=== PATIENT | male | born 1940 | race Caucasian/White ===

== ENCOUNTER 2022-02-11 18:51 | Emergency (ER) | payer MEDICARE, BC ==
[2022-02-11 20:05] LABS: Basophils % (A) 0 %; Eosinophils % (A) 0 %; HCT 38.6 % (39.0-53.0); HGB 13.7 gm/dL (13.0-17.5); Lymphocytes % (A) 13 %; MCHC 35.5 g/dL (31.0-37.0); Mean Platelet Volume 9.8; Monocytes # (A) 0.9 k/uL (0-1.0); Monocytes % (A) 13 %; Neutrophils # (A) 5.3 k/uL (1.3-7.7); Neutrophils % (A) 72 %; Platelet Count 197 k/uL (150-450); RBC 4.16 m/uL (4.30-5.90); RDW 12.3 % (11.5-15.5); WBC 7.3 k/uL (3.8-10.6)
[2022-02-11 20:15] LABS: ALT 22 U/L (4-49); AST 41 U/L (17-59); African American GFR (CKD) >90 (>60 ml/min/1.73 sqM); Albumin 4.1 g/dL (3.5-5.0); Alkaline Phosphatase 88 U/L (38-126); Anion Gap 11 mmol/L; Blood Urea Nitrogen 20 mg/dL (9-20); Carbon Dioxide 23 mmol/L (22-30); Chloride 103 mmol/L (98-107); Glucose 109 mg/dL (74-99); Magnesium 1.8 mg/dL (1.6-2.3); Non-African American GFR(CKD) 89 (>60 ml/min/1.73 sqM); Potassium 3.6 mmol/L (3.5-5.1); Sodium 137 mmol/L (137-145); Total Bilirubin 0.6 mg/dL (0.2-1.3); Total Protein 6.3 g/dL (6.3-8.2)
--- NOTE | 2022-02-11 20:18 | XR ---
EXAMINATION TYPE: XR chest 2V DATE OF EXAM: 02/11/2022 COMPARISON: NONE HISTORY: Weakness TECHNIQUE: 2 views FINDINGS: Heart is normal. Lungs are clear of infiltrate. No heart failure. There are no hilar masses . There is spurring in the thoracic spine. Bony thorax is intact. IMPRESSION: No active cardiopulmonary disease. Normal heart.
--- NOTE | 2022-02-11 20:19 | XR ---
EXAMINATION TYPE: XR Hip RT and AP Pelvis DATE OF EXAM: 02/11/2022 COMPARISON: NONE HISTORY: Pain TECHNIQUE: 3 views FINDINGS: The pelvic ring is intact. Sacroiliac joints are intact. There is acetabular bilateral spur formation. The proximal right femur is intact. No hip fracture. 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 No fracture seen.
[2022-02-11] MEDS ORDERED: Acetaminophen-Codeine 300-30mg TAB PO STA (20:28)
--- NOTE | 2022-02-11 20:42 | CT ---
EXAMINATION TYPE: CT brain yaw strauss DATE OF EXAM: 02/11/2022 COMPARISON: None HISTORY: pain after fall CT DLP: 1399.8 mGycm Automated exposure control for dose reduction was used. Images obtained of the brain without contrast. There is hypodensity in the periventricular white matter. There is no mass effect or midline shift. N o sign of intracranial hemorrhage. There is cerebral cortical atrophy. The cervical vertebra have fairly normal alignment. There is a mild retrolisthesis at C5-6. There is anterior moderate spurring at C5-6 and C6-7. There is hypertrophic mild cervical facet arthropathy. S kull base is intact. IMPRESSION: Cerebral atrophy and chronic small vessel ischemia. No acute intracranial abnormality. Spondylotic changes in the cervical spine and a minimal C5-6 retrolisthesis. No fracture.
[2022-02-11 20:44] LABS: Partial Thromboplastin Time 27.4 sec (22.0-30.0); Prothrombin Time 11.1 sec (9.0-12.0)
--- NOTE | 2022-02-11 21:38 | ED ---
General Adult HPI - General Chief complaint: Weakness Stated complaint: dementia, frequent falls Time Seen by Provider: 02/11/22 19:00 Source: patient Mode of arrival: ambulatory Limitations: no limitations - History of Present Illness Initial comments: 81 year old male with PMH dementia presents after 2 falls today. reports history. States that the patient had an unwitnessed fall. She found him in the living room on the floor just in front of his chair. Patient does not remember falling out of it. Reports that he hit his head but did not lose consciousness. Denies headache, neck pain, visual changes. Due to right hip pain from the fall, the patient sustained a second fall later on in the day after his hip gave out. Son was able to help him up and then called an ambulance. Patient able to answer all questions. Denies current hip pain. - Related Data Allergies Allergy/AdvReac Type Severity Reaction Status Date / Time Penicillins Allergy Unknown Verified 02/11/22 19:00 Review of Systems ROS Statement: Those systems with pertinent positive or pertinent negative responses have been documented in the HPI. ROS Other: All systems not noted in ROS Statement are negative. Past Medical History Past Medical History: Cancer, CVA/TIA, Dementia, GERD/Reflux, Hyperlipidemia, Thyroid Disorder History of Any Multi-Drug Resistant Organisms: None Reported Additional Past Surgical History / Comment(s): colostomy Past Psychological History: No Psychological Hx Reported Smoking Status: Never smoker Past Alcohol Use History: None Reported Past Drug Use History: None Reported General Exam Limitations: no limitations General appearance: alert, in no apparent distress Head exam: Present: atraumatic, normocephalic, normal inspection Eye exam: Present: normal appearance, PERRL, EOMI. Absent: scleral icterus, conjunctival injection, periorbital swelling ENT exam: Present: normal exam, mucous membranes moist Neck exam: Present: normal inspection. Absent: tenderness, meningismus, lymphadenopathy Respiratory exam: Present: normal lung sounds bilaterally. Absent: respiratory distress, wheezes, rales, rhonchi, stridor Cardiovascular Exam: Present: regular rate, normal rhythm, normal heart sounds. Absent: systolic murmur, diastolic murmur, rubs, gallop, clicks GI/Abdominal exam: Present: soft, normal bowel sounds. Absent: distended, tenderness, guarding, rebound, rigid Extremities exam: Present: normal inspection, full ROM, normal capillary refill. Absent: tenderness, pedal edema, joint swelling, calf tenderness Back exam: Present: normal inspection Neurological exam: Present: alert, oriented X3, CN II-XII intact Psychiatric exam: Present: normal affect, normal mood Skin exam: Present: warm, dry, intact, normal color. Absent: rash Course Vital Signs 02/11/22 02/11/22 02/11/22 18:54 19:30 22:22 Temperature 98.2 F 98.1 F 99.2 F Pulse Rate 68 63 70 Respiratory 18 16 12 Rate Blood Pressure 146/61 132/57 142/64 O2 Sat by Pulse 94 L Oximetry EKG Findings - EKG Comments: EKG Findings:: EKG demonstrates sinus rhythm with rate of 65. NE interval 175. QRS 92. QTC of 318. No acute ST segment elevations or depressions Medical Decision Making - Medical Decision Making Upon arrival, patient placed into room 3. History and physical exam performed. Pt sent for CT brain/c-spine. Chest and pelvic xray performed. No acute injuries. Patient eager to go home and is agreeable. Patient needs to follow up with PCP in 2-4 days and return for any new or worsening symptoms. - Lab Data Result diagrams: 02/11/22 19:59 02/11/22 19:59 Lab Results 02/11/22 02/11/22 02/11/22 Range/Units 19:59 19:59 19:59 WBC 7.3 (3.8-10.6) k/uL RBC 4.16 L (4.30-5.90) m/uL Hgb 13.7 (13.0-17.5) gm/dL Hct 38.6 L (39.0-53.0) % MCV 93.0 (80.0-100.0) fL MCH 33.0 (25.0-35.0) pg MCHC 35.5 (31.0-37.0) g/dL RDW 12.3 (11.5-15.5) % Plt Count 197 (150-450) k/uL MPV 9.8 Neutrophils % 72 % Lymphocytes % 13 % Monocytes % 13 % Eosinophils % 0 % Basophils % 0 % Neutrophils # 5.3 (1.3-7.7) k/uL Lymphocytes # 1.0 (1.0-4.8) k/uL Monocytes # 0.9 (0-1.0) k/uL Eosinophils # 0.0 (0-0.7) k/uL Basophils # 0.0 (0-0.2) k/uL PT 11.1 (9.0-12.0) sec INR 1.0 (<1.2) APTT 27.4 (22.0-30.0) sec Sodium 137 (137-145) mmol/L Potassium 3.6 (3.5-5.1) mmol/L Chloride 103 (98-107) mmol/L Carbon Dioxide 23 (22-30) mmol/L Anion Gap 11 mmol/L BUN 20 (9-20) mg/dL Creatinine 0.70 (0.66-1.25) mg/dL Est GFR (CKD-EPI)AfAm >90 (>60 ml/min/1.73 sqM) Est GFR (CKD-EPI)NonAf 89 (>60 ml/min/1.73 sqM) Glucose 109 H (74-99) mg/dL Plasma Lactic Acid Elroy (0.7-2.0) mmol/L Calcium 9.0 (8.4-10.2) mg/dL Magnesium 1.8 (1.6-2.3) mg/dL Total Bilirubin 0.6 (0.2-1.3) mg/dL AST 41 (17-59) U/L ALT 22 (4-49) U/L Alkaline Phosphatase 88 (38-126) U/L Troponin I (0.000-0.034) ng/mL Total Protein 6.3 (6.3-8.2) g/dL Albumin 4.1 (3.5-5.0) g/dL TSH 0.025 L (0.465-4.680) mIU/L Free T4 1.70 (0.78-2.19) ng/dL 02/11/22 02/11/22 Range/Units 19:59 19:59 WBC (3.8-10.6) k/uL RBC (4.30-5.90) m/uL Hgb (13.0-17.5) gm/dL Hct (39.0-53.0) % MCV (80.0-100.0) fL MCH (25.0-35.0) pg MCHC (31.0-37.0) g/dL RDW (11.5-15.5) % Plt Count (150-450) k/uL MPV Neutrophils % % Lymphocytes % % Monocytes % % Eosinophils % % Basophils % % Neutrophils # (1.3-7.7) k/uL Lymphocytes # (1.0-4.8) k/uL Monocytes # (0-1.0) k/uL Eosinophils # (0-0.7) k/uL Basophils # (0-0.2) k/uL PT (9.0-12.0) sec INR (<1.2) APTT (22.0-30.0) sec Sodium (137-145) mmol/L Potassium (3.5-5.1) mmol/L Chloride (98-107) mmol/L Carbon Dioxide (22-30) mmol/L Anion Gap mmol/L BUN (9-20) mg/dL Creatinine (0.66-1.25) mg/dL Est GFR (CKD-EPI)AfAm (>60 ml/min/1.73 sqM) Est GFR (CKD-EPI)NonAf (>60 ml/min/1.73 sqM) Glucose (74-99) mg/dL Plasma Lactic Acid Elroy 0.7 (0.7-2.0) mmol/L Calcium (8.4-10.2) mg/dL Magnesium (1.6-2.3) mg/dL Total Bilirubin (0.2-1.3) mg/dL AST (17-59) U/L ALT (4-49) U/L Alkaline Phosphatase (38-126) U/L Troponin I <0.012 (0.000-0.034) ng/mL Total Protein (6.3-8.2) g/dL Albumin (3.5-5.0) g/dL TSH (0.465-4.680) mIU/L Free T4 (0.78-2.19) ng/dL Disposition Clinical Impression: Fall, Right hip pain Disposition: HOME SELF-CARE Condition: Stable Instructions (If sedation given, give patient instructions): Fall Prevention for Older Adults (ED) Additional Instructions: Please ambulate with the walker. Follow-up with your primary care doctor in 2-4 days. Return for any new or worsening symptoms Is patient prescribed a controlled substance at d/c from ED?: No Referrals: Marcos Phan MD [Primary Care Provider] - 1-2 days Time of Disposition: 21:44
[2022-02-11 22:52] VITALS: BP 142/64; PULSE 70; RESP 12; TEMP 99.2
== END 2022-02-11 22:22 | disposition home or self-care (01) ==
LOC: EC 18:51
DX: M25.551 Pain in right hip (principal); I63.9 Cerebral infarction, unspecified; K21.9 Gastro-esophageal reflux disease without esophagitis; E78.5 Hyperlipidemia, unspecified; E03.9 Hypothyroidism, unspecified; G45.9 Transient cerebral ischemic attack, unspecified; Z88.0 Allergy status to penicillin; W19.XXXA Unspecified fall, initial encounter
CPT/HCPCS: 36415; 70450; 71046; 72125; 73502; 80053; 83605; 83735; 84439; 84443; 84484; 85025; 85610; 85730; 93005; 99285

== ENCOUNTER 2022-12-13 03:05 | Emergency (ER) | payer MEDICARE, BC ==
[2022-12-13 03:14] VITALS: BP 147/60; PULSE 56; RESP 18; TEMP 98.6
--- NOTE | 2022-12-13 03:33 | ED ---
General Adult HPI - General Chief complaint: Fall Stated complaint: Fall, Hip Pain, Time Seen by Provider: 12/13/22 03:19 Source: patient, RN/MD Mode of arrival: wheelchair - History of Present Illness Initial comments: Dictation was produced using [employer] dictation software. please excuse any grammatical, word or spelling errors. Chief Complaint: 81-year-old male past medical history dementia presents to the ER after fall History of Present Illness: Is an 81-year-old male he has allegedly history of dementia. Patient provides history of present illness. he was brought to the ER by his brother who is not at the bedside currently. States that he was sleeping on the couch when he rolled over his left hip. Did strike his head. Patient has any complaints. Patient denies any anticoagulation use. Patient was upstairs because his is admitted. According to nurse take care of patients he was sleeping on the couch when he rolled over and fell. The ROS documented in this emergency department record has been reviewed and confirmed by me. Those systems with pertinent positive or negative responses have been documented in the HPI. All other systems are other negative and/or noncontributory. - Related Data Allergies Allergy/AdvReac Type Severity Reaction Status Date / Time Penicillins Allergy Unknown Verified 12/13/22 03:14 Review of Systems ROS Statement: Those systems with pertinent positive or pertinent negative responses have been documented in the HPI. ROS Other: All systems not noted in ROS Statement are negative. Past Medical History Past Medical History: Cancer, CVA/TIA, Dementia, GERD/Reflux, Hyperlipidemia, Thyroid Disorder History of Any Multi-Drug Resistant Organisms: None Reported Additional Past Surgical History / Comment(s): colostomy Past Psychological History: No Psychological Hx Reported Smoking Status: Never smoker Past Alcohol Use History: None Reported Past Drug Use History: None Reported General Exam - General Exam Comments Initial Comments: PHYSICAL EXAM: General Impression: Alert and oriented x3, not in acute distress HEENT: Normocephalic atraumatic, extra-ocular movements intact, pupils equal and reactive to light bilaterally, mucous membranes moist. Cardiovascular: Heart regular rate and rhythm Chest: Able to complete full sentences, no retractions, no tachypnea Abdomen: abdomen soft, non-tender, non-distended, no organomegaly Musculoskeletal: Pulses present and equal in all extremities, no peripheral edema Motor: no focal deficits noted Neurological: CN II-XII grossly intact, no focal motor or sensory deficits noted Skin: Intact with no visualized rashes Psych: Normal affect and mood Course Vital Signs 12/13/22 03:11 Temperature 98.6 F Pulse Rate 56 L Respiratory 18 Rate Blood Pressure 147/60 O2 Sat by Pulse 98 Oximetry Medical Decision Making - Medical Decision Making Was pt. sent in by a medical professional or institution (GALILEO Riddle, OUTSIDE SALES INSPECTOR, urgent care, hospital, or alf...) When possible be specific @ -No Did you speak to anyone other than the patient for history (EMS, parent, family, police, friend...)? What history was obtained from this source @ -No Did you review nursing and triage notes (agree or disagree)? Why? @ -I reviewed and agree with nursing and triage notes Were old charts reviewed (outside hosp., previous admission, EMS record, old EKG, old radiological studies, urgent care reports/EKG's, alf records)? Report findings @ -No old charts were reviewed Differential Diagnosis (chest pain, altered mental status, abdominal pain women, abdominal pain men, vaginal bleeding, musculoskeletal, weakness, fever, dyspnea, syncope, headache, dizziness, GI bleed, back pain, seizure, CVA, palpatations, mental health)? @ -not applicable EKG interpreted by me (3pts min.). @ -None done X-rays interpreted by me (1pt min.). @ -None done CT interpreted by me (1pt min.). @ -Computed tomography scan of the head and C-spine shows no acute processes U/S interpreted by me (1pt. min.). @ -None done What testing was considered but not performed or refused? (CT, X-rays, U/S, labs)? Why? @ -None What meds were considered but not given or refused? Why? @ -None Did you discuss the management of the patient with other professionals (professionals i.e. GALILEO Riddle, OUTSIDE SALES INSPECTOR, lab, RT, psych nurse, social studies teacher, general labor, teacher, chief security and safety officer, special education case manager)? Give summary @ -No Was smoking cessation discussed for >3mins.? @ -No Was critical care preformed (if so, how long)? @ -No Were there social determinants of health that impacted care today? How? (Homelessness, low income, unemployed, alcoholism, drug addiction, transportation, low edu. Level, literacy, decrease access to med. care, longterm, rehab)? @ -No Was there de-escalation of care discussed even if they declined (Discuss DNR or withdrawal of care, Hospice)? DNR status @ -No What co-morbidities impacted this encounter? (DM, HTN, Smoking, COPD, CAD, Cancer, CVA, ARF, Chemo, Hep., AIDS, mental health diagnosis, sleep apnea, morbid obesity)? @ -None Was patient admitted / discharged? Hospital course, mention meds given and route, prescriptions, significant lab abnormalities, going to OR and other pertinent info. @ -81-year-old male presents emergency department for close head injury. Vital signs stable. Physical examination benign. Imaging studies negative. Patient discharged. Undiagnosed new problem with uncertain prognosis? @ -No Drug Therapy requiring intensive monitoring for toxicity (Heparin, Nitro, Insulin, Cardizem)? @ -No Were any procedures done? @ -No Diagnosis/symptom? Acute, or Chronic, or Acute on Chronic? Uncomplicated (wit hout systemic symptoms) or Complicated (systemic symptoms)? @ -Closed head injury Side effects of treatment? @ -No Exacerbation, Progression, or Severe Exacerbation? @ -No Poses a threat to life or bodily function? How? (Chest pain, [place], [place], pneumonia, PE, COPD, DKA, ARF, appy, cholecystitis, CVA, Diverticulitis, Homicidal, Suicidal, threat to staff... and all critical care pts) @ -No Disposition Clinical Impression: Fall Disposition: HOME SELF-CARE Condition: Good Instructions (If sedation given, give patient instructions): Fall Prevention for Older Adults (ED) Is patient prescribed a controlled substance at d/c from ED?: No Referrals: None,Stated [Primary Care Provider] - 1-2 days Time of Disposition: 06:46
--- NOTE | 2022-12-13 06:43 | CT ---
EXAM: CT Head Without Intravenous Contrast CLINICAL HISTORY: ITS.REASON CT Reason: fall TECHNIQUE: Axial computed tomography images of the head/brain without intravenous contrast. CTDI is 45.2 mGy and DLP is 1049 mGy-cm. This CT exam was performed using one or more of the following dose reduction techniques: automated exposure control, adjustment of the mA and/or kV according to patient size, and/or use of iterative reconstruction technique. COMPARISON: No relevant prior studies available. FINDINGS: Brain: Unremarkable. No hemorrhage. Advanced nonspecific white matter changes. No edema. Ventricles: Mild ventricular megaly. Bones/joints: Unremarkable. No acute fracture. Soft tissues: Bilateral lens replacements. Sinuses: Unremarkable as visualized. No acute sinusitis. Mastoid air cells: Unremarkable as visualized. No mastoid effusion. IMPRESSION: No evidence of acute intracranial pathology. EXAM: CT Cervical Spine Without Intravenous Contrast CLINICAL HISTORY: ITS.REASON CT Reason: fall TECHNIQUE: Axial computed tomography images of the cervical spine without intravenous contrast. CTDI is 12.2 mGy and DLP is 308.2 mGy-cm. This CT exam was performed using one or more of the following dose reduction techniques: automated exposure control, adjustment of the mA and/or kV according to patient size, and/or use of iterative reconstruction technique. COMPARISON: No relevant prior studies available. FINDINGS: Vertebrae: Unremarkable. No acute fracture. Discs/spinal canal/neural foramina: Moderate to advanced disc degeneration at C3-4, C5-6, C6-7 and C7-T1. No acute findings. No spinal canal stenosis. Soft tissues: Moderate to heavily calcified atherosclerotic disease of the carotid bifurcations. IMPRESSION: No evidence of acute cervical spine pathology.
== END 2022-12-13 06:54 | disposition home or self-care (01) ==
LOC: EC 03:05
DX: M25.552 Pain in left hip (principal); Z88.0 Allergy status to penicillin; X50.0XXA Overexertion from strenuous movement or load, initial encounter
CPT/HCPCS: 70450; 72125; 99283

== ENCOUNTER 2023-01-06 19:00 | Inpatient (IN) | payer MEDICARE, BC ==
[2023-01-06] MEDS ORDERED: SODIUM CHLORIDE 0.9% 1,000 ML IV ONE (19:35)
[2023-01-06] MEDS ORDERED: LORazepam 2 MG/ML INJ IV STA (19:35)
--- NOTE | 2023-01-06 19:35 | ED ---
Altered Mental Status HPI - General Source: EMS, RN notes reviewed, old records reviewed Mode of arrival: EMS Limitations: no limitations, altered mental status - History of Present Illness MD Complaint: altered mental status, weakness -: hour(s) Severity: moderate Consistency of Symptoms: waxing and waning Context: alcohol abuse, drug abuse Associated Symptoms: denies other symptoms Treatments Prior to Arrival: IV fluid <Karlos Weaver - Last Filed: 01/06/23 21:56> <Silvano Cleveland - Last Filed: 01/07/23 00:00> - General Chief Complaint: Psychiatric Symptoms Stated Complaint: Altered Mental Status Time Seen by Provider: 01/06/23 19:06 - History of Present Illness Initial Comments: This is a 82-year-old male to the emergency department for evaluation. Patient presents today for evaluation regards to altered mental status not acting appropriately fighting with family. Patient was found with a gun in the ba sement, patient's son his here in the ER who brings patient to the emergency department after EMS with patient being affected family and himself. Patient is unable to give accurate statements regarding why he is in the hospital or why he was holding a gun today, son is very concerned for safety and safety of the family (Karlos Weaver) - Related Data Allergies Allergy/AdvReac Type Severity Reaction Status Date / Time Penicillins Allergy Unknown Verified 01/06/23 22:09 Review of Systems ROS Other: All systems not noted in ROS Statement are negative. <Karlos Weaver - Last Filed: 01/06/23 21:56> ROS Other: All systems not noted in ROS Statement are negative. <Silvano Cleveland - Last Filed: 01/07/23 00:00> ROS Statement: Those systems with pertinent positive or pertinent negative responses have been documented in the HPI. Past Medical History Past Medical History: Cancer, CVA/TIA, Dementia, GERD/Reflux, Hyperlipidemia, Thyroid Disorder History of Any Multi-Drug Resistant Organisms: None Reported Additional Past Surgical History / Comment(s): colostomy Past Psychological History: No Psychological Hx Reported Smoking Status: Never smoker Past Alcohol Use History: None Reported Past Drug Use History: None Reported <Karlos Weaver - Last Filed: 01/06/23 21:56> General Exam Limitations: no limitations, altered mental status General appearance: alert, in no apparent distress Head exam: Present: atraumatic, normocephalic, normal inspection Eye exam: Present: normal appearance, PERRL, EOMI. Absent: scleral icterus, conjunctival injection, periorbital swelling ENT exam: Present: normal exam, mucous membranes moist Neck exam: Present: normal inspection. Absent: tenderness, meningismus, lymph adenopathy Respiratory exam: Present: normal lung sounds bilaterally. Absent: respiratory distress, wheezes, rales, rhonchi, stridor Cardiovascular Exam: Present: regular rate, normal rhythm, normal heart sounds. Absent: systolic murmur, diastolic murmur, rubs, gallop, clicks GI/Abdominal exam: Present: soft, normal bowel sounds. Absent: distended, tenderness, guarding, rebound, rigid Extremities exam: Present: normal inspection, full ROM, normal capillary refill. Absent: tenderness, pedal edema, joint swelling, calf tenderness Back exam: Present: normal inspection Neurological exam: Present: alert, oriented X3, CN II-XII intact Psychiatric exam: Present: normal affect, normal mood Skin exam: Present: warm, dry, intact, normal color. Absent: rash <Karlos Weaver - Last Filed: 01/06/23 21:56> Course <Karlos Weaver - Last Filed: 01/06/23 21:56> Vital Signs 01/06/23 19:03 Temperature 98.4 F Pulse Rate 93 Respiratory 18 Rate Blood Pressure 170/75 O2 Sat by Pulse 97 Oximetry - Reevaluation(s) Reevaluation #1: 01/06/23 20:11 Medical records reviewed 01/06/23 21:56 Medically clear for psychiatric evaluation (Karlos Weaver) Reevaluation #4: 01/06/23 20:11 Was pt. sent in by a medical professional or institution (, PA, [employer], urgent care, hospital, or halfway...) When possible be specific @ -no Did you speak to anyone other than the patient for history (EMS, parent, family, police, friend...)? What history was obtained from this source @ -no Did you review nursing and triage notes (agree or disagree)? Why? @ -agree Are old charts reviewed (outside hosp., previous admission, EMS record, old EKG, old radiological studies, urgent care reports/EKG's, halfway records)? Report findings @ -yes Differential Diagnosis (chest pain, altered mental status, abdominal pain women, abdominal pain men, vaginal bleeding, weakness, fever, dyspnea, syncope, headache, dizziness, GI bleed, back pain, seizure, CVA, palpatations, mental health, musculoskeletal)? @ -prior EKG interpreted by me (3pts min.). @ -yes X-rays interpreted by me (1pt min.). @ -yes CT interpreted by me (1pt min.). @ -no U/S interpreted by me (1pt. min.). @ -no What testing was considered but not performed or refused? (CT, X-rays, U/S, labs)? Why? @ -none What meds were considered but not given or refused? Why? @ -none Did you discuss the management of the patient with other professionals (professionals i.e. , PA, [employer], lab, RT, psych nurse, family welfare social work professor, gym manager, t eacher, aoc director intelligence officer, case coordinator)? Give summary @ -no Was smoking cessation discussed for >3mins.? @ -no Was critical care preformed (if so, how long)? @ -no Were there social determinants of health that impacted care today? How? (Homelessness, low income, unemployed, alcoholism, drug addiction, transportation, low edu. Level, literacy, decrease access to med. care, nursing home, rehab)? @ -none Was there de-escalation of care discussed even if they declined (Discuss DNR or withdrawal of care, Hospice)? DNR status @ -no What co-morbidities impacted this encounter? (DM, HTN, Smoking, COPD, CAD, Cancer, CVA, ARF, Chemo, Hep., AIDS, mental health diagnosis, sleep apnea, morbid obesity)? @ -none Was patient admitted / discharged? Hospital course, mention meds given and route, prescriptions, significant lab abnormalities, going to OR and other pertinent info. @ - Undiagnosed new problem with uncertain prognosis? @ -no Drug Therapy requiring intensive monitoring for toxicity (Heparin, Nitro, Insulin, Cardizem)? @ -no Were any procedures done? @ -no Diagnosis/symptom? @ - Acute, or Chronic, or Acute on Chronic? @ -Acute Uncomplicated (without systemic symptoms) or Complicated (systemic symptoms)? @ -Complicated Side effects of treatment? @ -no Exacerbation, Progression, or Severe Exacerbation? @ -exacerbation Poses a threat to life or bodily function? How? (Chest pain, USA, NM, pneumonia, PE, COPD, DKA, ARF, appy, cholecystitis, CVA, Diverticulitis, Homicidal, Suicidal, threat to staff... and all critical care pts) @ -yes (Karlos Weaver) Reevaluation #5: 01/06/23 20:11 Differential Altered Mental Status: Hypoglycemia, DKA, hypercapnia, ETOH, overdose, CO poisoning, trauma, myxedema coma, HTN encephalopathy, infection, encephalitis, psychosis, intercranial hemorrhage, hepatic encephalopathy, meningitis, CVA, this is not meant to be an all-inclusive list (Karlos Weaver) Medical Decision Making - Lab Data Result diagrams: 01/06/23 20:00 01/06/23 20:00 - EKG Data -: EKG Interpreted by Me (EKG is sinus rate 75 CA 197 QRS 84 QTc 390) <Karlos Weaver - Last Filed: 01/06/23 21:56> - Lab Data Result diagrams: 01/06/23 20:00 01/06/23 20:00 <Silvano Cleveland - Last Filed: 01/07/23 00:00> - Lab Data Lab Results 01/06/23 01/06/23 01/06/23 Range/Units 19:59 20:00 20:00 WBC 8.0 (3.8-10.6) k/uL RBC 4.73 (4.30-5.90) m/uL Hgb 15.5 (13.0-17.5) gm/dL Hct 45.4 (39.0-53.0) % MCV 95.9 (80.0-100.0) fL MCH 32.8 (25.0-35.0) pg MCHC 34.2 (31.0-37.0) g/dL RDW 13.2 (11.5-15.5) % Plt Count 259 (150-450) k/uL MPV 9.4 Neutrophils % 69 % Lymphocytes % 23 % Monocytes % 5 % Eosinophils % 2 % Basophils % 0 % Neutrophils # 5.5 (1.3-7.7) k/uL Lymphocytes # 1.8 (1.0-4.8) k/uL Monocytes # 0.4 (0-1.0) k/uL Eosinophils # 0.2 (0-0.7) k/uL Basophils # 0.0 (0-0.2) k/uL PT 10.5 (9.0-12.0) sec INR 1.0 (<1.2) APTT 25.7 (22.0-30.0) sec Sodium (137-145) mmol/L Potassium (3.5-5.1) mmol/L Chloride (98-107) mmol/L Carbon Dioxide (22-30) mmol/L Anion Gap mmol/L BUN (9-20) mg/dL Creatinine (0.66-1.25) mg/dL Est GFR (CKD-EPI)AfAm (>60 ml/min/1.73 sqM) Est GFR (CKD-EPI)NonAf (>60 ml/min/1.73 sqM) Glucose (74-99) mg/dL POC Glucose (mg/dL) 109 (70-110) mg/dL POC Glu Inspector Bullet Slugs ID Alonso Boyd Calcium (8.4-10.2) mg/dL Total Bilirubin (0.2-1.3) mg/dL AST (17-59) U/L ALT (4-49) U/L Alkaline Phosphatase (38-126) U/L Ammonia (<30) umol/L Troponin I (0.000-0.034) ng/mL Total Protein (6.3-8.2) g/dL Albumin (3.5-5.0) g/dL Serum Alcohol mg/dL 01/06/23 01/06/23 01/06/23 Range/Units 20:00 20:00 20:00 WBC (3.8-10.6) k/uL RBC (4.30-5.90) m/uL Hgb (13.0-17.5) gm/dL Hct (39.0-53.0) % MCV (80.0-100.0) fL MCH (25.0-35.0) pg MCHC (31.0-37.0) g/dL RDW (11.5-15.5) % Plt Count (150-450) k/uL MPV Neutrophils % % Lymphocytes % % Monocytes % % Eosinophils % % Basophils % % Neutrophils # (1.3-7.7) k/uL Lymphocytes # (1.0-4.8) k/uL Monocytes # (0-1.0) k/uL Eosinophils # (0-0.7) k/uL Basophils # (0-0.2) k/uL PT (9.0-12.0) sec INR (<1.2) APTT (22.0-30.0) sec Sodium 139 (137-145) mmol/L Potassium 4.1 (3.5-5.1) mmol/L Chloride 105 (98-107) mmol/L Carbon Dioxide 27 (22-30) mmol/L Anion Gap 7 mmol/L BUN 15 (9-20) mg/dL Creatinine 0.67 (0.66-1.25) mg/dL Est GFR (CKD-EPI)AfAm >90 (>60 ml/min/1.73 sqM) Est GFR (CKD-EPI)NonAf >90 (>60 ml/min/1.73 sqM) Glucose 112 H (74-99) mg/dL POC Glucose (mg/dL) (70-110) mg/dL POC Glu Inspector [employer] Slugs ID Calcium 9.5 (8.4-10.2) mg/dL Total Bilirubin 1.0 (0.2-1.3) mg/dL AST 34 (17-59) U/L ALT 18 (4-49) U/L Alkaline Phosphatase 94 (38-126) U/L Ammonia <9 (<30) umol/L Troponin I <0.012 (0.000-0.034) ng/mL Total Protein 7.4 (6.3-8.2) g/dL Albumin 4.2 (3.5-5.0) g/dL Serum Alcohol <10 mg/dL Disposition <Karlos Weaver - Last Filed: 01/06/23 21:56> Is patient prescribed a controlled substance at d/c from ED?: No Time of Disposition: 23:30 Decision to Admit Reason: Admit from EC Decision Date: 01/06/23 Decision Time: 23:30 <Silvano Cleveland - Last Filed: 01/07/23 00:00> Clinical Impression: Dementia Disposition: ADMITTED IP TO THIS HOSP Condition: Stable Referrals: Marcos Phan MD [Primary Care Provider] - 1-2 days
[2023-01-06 20:01] LABS: Glucose,Whole Blood 109 mg/dL (70-110)
[2023-01-06 20:09] LABS: Basophils % (A) 0 %; Eosinophils # (A) 0.2 k/uL (0-0.7); Eosinophils % (A) 2 %; HCT 45.4 % (39.0-53.0); HGB 15.5 gm/dL (13.0-17.5); Lymphocytes # (A) 1.8 k/uL (1.0-4.8); Lymphocytes % (A) 23 %; MCH 32.8 pg (25.0-35.0); MCHC 34.2 g/dL (31.0-37.0); MCV 95.9 fL (80.0-100.0); Mean Platelet Volume 9.4; Monocytes # (A) 0.4 k/uL (0-1.0); Monocytes % (A) 5 %; Neutrophils # (A) 5.5 k/uL (1.3-7.7); Neutrophils % (A) 69 %; Platelet Count 259 k/uL (150-450); RBC 4.73 m/uL (4.30-5.90); RDW 13.2 % (11.5-15.5)
[2023-01-06 20:19] LABS: ALT 18 U/L (4-49); AST 34 U/L (17-59); African American GFR (CKD) >90 (>60 ml/min/1.73 sqM); Albumin 4.2 g/dL (3.5-5.0); Alcohol <10 mg/dL; Alkaline Phosphatase 94 U/L (38-126); Anion Gap 7 mmol/L; Blood Urea Nitrogen 15 mg/dL (9-20); Calcium 9.5 mg/dL (8.4-10.2); Carbon Dioxide 27 mmol/L (22-30); Chloride 105 mmol/L (98-107); Glucose 112 mg/dL (74-99); Non-African American GFR(CKD) >90 (>60 ml/min/1.73 sqM); Potassium 4.1 mmol/L (3.5-5.1); Sodium 139 mmol/L (137-145); Total Protein 7.4 g/dL (6.3-8.2)
[2023-01-06 20:22] LABS: Partial Thromboplastin Time 25.7 sec (22.0-30.0); Prothrombin Time 10.5 sec (9.0-12.0)
[2023-01-06] MEDS ORDERED: NALOXONE 0.4 MG/ML 1 ML VIAL IV PRN (23:58)
[2023-01-07 01:59] LABS: Amphetamine Screen,Urine Not Detected (NotDetected); Barbiturate Screen,Urine Not Detected (NotDetected); Benzodiazepines Screen,Urine Detected (NotDetected); Cocaine Screen,Urine Not Detected (NotDetected); Methadone Screen, Urine Not Detected (NotDetected); Opiate Screen,Urine Not Detected (NotDetected); Oxycodone Screen, Urine Not Detected (NotDetected); Phencyclidine Screen,Urine Not Detected (NotDetected); Tricyclic Antidepressant,Urine Not Detected (NotDetected); Urn Cannabinoid Scrn Not Detected (NotDetected)
[2023-01-07] MEDS ORDERED: LEVOTHYROXINE 88 MCG TAB PO SCH (11:45)
[2023-01-07 13:44] LABS: T4, Free (Free Thyroxine) 0.52 ng/dL (0.78-2.19)
[2023-01-07] MEDS: HEPARIN SODIUM,PORCINE 5,000 UNIT/ML 1 ML VIAL SQ SCH (16:49)
[2023-01-07] MEDS: LEVOTHYROXINE 75 MCG TAB PO SCH (16:49)
[2023-01-07] MEDS: DONEPEZIL 10 MG TAB PO SCH (21:31)
[2023-01-07] MEDS: DIVALPROEX ER 250 MG TAB.ER.24H PO SCH (21:31)
[2023-01-08] MEDS: HEPARIN SODIUM,PORCINE 5,000 UNIT/ML 1 ML VIAL SQ SCH ×4 (00:09→23:20)
--- NOTE | 2023-01-08 00:39 | P.HPIM ---
History of Present Illness H&P Date: 01/07/23 Chief Complaint: Behavioral changes Patient is a 82-year-old male with a past medical history of CVA/TIA, dementia, hypothyroidism, hyperlipidemia, GERD, history of cancer and colostomy was brought to the hospital for evaluation of altered mental status and patient is not acting appropriately and has been fighting with family. Patient was found with a gun in the basement, patient was brought to the hospital by his son. Patient's son was very concerned about safety of the patient and family. Otherwise patient does not have any symptoms of chest pain or shortness of br eath. No nausea vomiting abdominal pain or diarrhea. Patient does have colostomy bag and has not been taking care of it very well. On admission EKG showed sinus rhythm. This likely is not available. Laboratory data showed WBC 8.0 hemoglobin 13.5 and platelets 259, sodium 139 potassium 4.1 chloride 105 bicarb is 27 BUN 15 and creatinine 0.67 and blood sugar is 112 Liver enzymes are not elevated ammonia less than 9 Review of Systems Constitutional: Patient denies any fever or chills . no Generalized weakness. Abdomen: Patient denied any nausea or vomiting or abd. pain Cardiovascular: Patient denies any chest pain or short of breath no palpitations. Respiratory: patient denied any cough . no sputum production. No shortness of breath Neurologic: Patient denied any numbness or tingling headache. Musculoskeletal: Patient denies any complaints of joint swelling or deformity. Skin: Negative Psychiatric. Denies suicidal ideation. Complete review of systems could not be obtained from the patient. Past Medical History Past Medical History: Cancer, CVA/TIA, Dementia, GERD/Reflux, Hyperlipidemia, Thyroid Disorder History of Any Multi-Drug Resistant Organisms: None Reported Additional Past Surgical History / Comment(s): colostomy Past Psychological History: No Psychological Hx Reported Smoking Status: Never smoker Past Alcohol Use History: None Reported Past Drug Use History: None Reported Medications and Allergies Home Medications Medication Instructions Recorded Confirmed Type Clopidogrel [Plavix] 75 mg PO DAILY 01/06/23 01/06/23 History Divalproex ER [Depakote ER] 250 mg PO BID 01/06/23 01/06/23 History Donepezil [Aricept] 10 mg PO HS 01/06/23 01/06/23 History Lipitor(Unknown Dose) 1 tab PO DAILY 01/06/23 01/06/23 History Memantine [Namenda] 10 mg PO BID 01/06/23 01/07/23 History Sertraline [Zoloft] 200 mg PO DAILY 01/06/23 01/06/23 History gemfibroziL [Lopid] 600 mg PO AC-BID 01/06/23 01/06/23 History Levothyroxine Sodium [Synthroid] 150 mcg PO AC-BRKFST 01/07/23 01/07/23 History Omeprazole 20 mg PO DAILY 01/07/23 01/07/23 History QUEtiapine [SEROquel] 12.5 mg PO HS 01/07/23 01/07/23 History Allergies Allergy/AdvReac Type Severity Reaction Status Date / Time Penicillins Allergy Unknown Verified 01/06/23 22:09 Physical Exam Vitals: Vital Signs Temp Pulse Resp BP Pulse Ox 01/07/23 08:53 98.5 F 74 16 165/69 97 01/07/23 06:56 58 L 18 150/69 98 01/06/23 19:03 98.4 F 93 18 170/75 97 Intake and Output 01/06/23 01/07/23 01/07/23 22:59 06:59 14:59 Other: Weight 81.647 kg PHYSICAL EXAMINATION: Patient is lying in the bed comfortably, no acute distress, awake alert and oriented.. HEENT: Normocephalic. Neck is supple. Pupils reactive. Nostrils clear. Oral cavity is moist. Neck reveals no JVD, carotid bruits, or thyromegaly. CHEST EXAMINATION: Trachea is central. Symmetrical expansion. Lung carpio clear to auscultation and percussion. CARDIAC: Normal S1, S2 with no gallops. No murmurs ABDOMEN: Soft. Bowel sounds present. Nontender. No organomegaly. No abdominal bruits. Left lower quadrant colostomy.. Extremities: reveal no edema. No clubbing or cyanosis Neurologically awake, alert, oriented x1-2 with cognitive impairment.. No gross focal deficits noted Skin: No rash or skin lesions. Psychiatric: Coperative. Nonsuicidal, Musculoskeletal: No joint swelling or deformity. Normal range of motion. Results CBC & Chem 7: 01/06/23 20:00 01/06/23 20:00 Labs: Abnormal Lab Results - Last 24 Hours (Table) 01/06/23 01/07/23 Range/Units 20:00 01:20 Glucose 112 H (74-99) mg/dL U Benzodiazepines Scrn Detected H (NotDetected) Thrombosis Risk Factor Assmnt - DVT/VTE Prophylaxis DVT/VTE Prophylaxis: Pharmacologic Prophylaxis ordered Assessment and Plan Assessment: Dementia with behavioral changes. Noncompliance with medications Hypothyroidism with elevated TSH and low free T4 level. Dementia GERD Hyperlipidemia History of cancer status post colostomy Depression DVT prophylaxis with heparin subcu. Plan: Patient will be continued on home medication including Depakote and Zoloft. Patient is also on Aricept. Follow-up chest x-ray and UA. Rule out infection. Colostomy care Follow-up TSH, B12 folate levels. Psychiatric evaluation and social work consult for possible placement. Time with Patient: Greater than 30
--- NOTE | 2023-01-08 07:54 | XR ---
EXAMINATION TYPE: XR chest 1V DATE OF EXAM: 01/08/2023 HISTORY: Shortness of breath. COMPARISON: 02/11/2022 TECHNIQUE: Single view of the chest is submitted. FINDINGS: Demonstrated are scattered senescent parenchymal change. There is no evidence for focal infiltrate. The heart is stable. Hilar and mediastinal structures are within normal limits. Degenerative changes are seen of the dorsal spine. IMPRESSION: 1. Chronic changes without evidence for acute pulmonary disease.
[2023-01-08] MEDS: CYANOCOBALAMIN 500 MCG TAB PO SCH (09:03)
[2023-01-08] MEDS: DIVALPROEX ER 250 MG TAB.ER.24H PO SCH ×2 (09:03→20:26)
[2023-01-08] MEDS: LEVOTHYROXINE 75 MCG TAB PO SCH (09:03)
[2023-01-08] MEDS: CLOPIDOGREL 75 MG TAB PO SCH (09:04)
[2023-01-08] MEDS: PANTOPRAZOLE 40 MG TABLET PO SCH (09:04)
[2023-01-08] MEDS: SERTRALINE 100 MG TAB PO SCH (09:04)
[2023-01-08 10:33] LABS: BUN/Creat Ratio 11.14 Ratio (12.00-20.00); Blood Urea Nitrogen 7.8 mg/dL (9.0-27.0); Calcium 9.5 mg/dL (8.7-10.3); Carbon Dioxide 26.3 mmol/L (21.6-31.8); Chloride 105 mmol/L (96-109); Glucose 92 mg/dL (70-110); Potassium 3.8 mmol/L (3.5-5.5); Sodium 141 mmol/L (135-145)
[2023-01-08] MEDS: DONEPEZIL 10 MG TAB PO SCH (20:26)
--- NOTE | 2023-01-09 02:58 | P.PN ---
Subjective Progress Note Date: 01/08/23 Patient is a 82-year-old male with a past medical history of CVA/TIA, dementia, hypothyroidism, hyperlipidemia, GERD, history of cancer and colostomy was brought to the hospital for evaluation of altered mental status and patient is not acting appropriately and has been fighting with family. Patient was found with a gun in the basement, patient was brought to the hospital by his son. Patient's son was very concerned about safety of the patient and family. Otherwise patient does not have any symptoms of chest pain or shortness of breath. No nausea vomiting abdominal pain or diarrhea. Patient does have colostomy bag and has not been taking care of it very well. On admission EKG showed sinus rhythm. This likely is not available. Laboratory data showed WBC 8.0 hemoglobin 13.5 and platelets 259, sodium 139 potassium 4.1 chloride 105 bicarb is 27 BUN 15 and creatinine 0.67 and blood sugar is 112 Liver enzymes are not elevated ammonia less than 9 Objective - Vital Signs Vital signs: Vital Signs Temp 97.8 F 01/08/23 12:04 Pulse 70 01/08/23 12:04 Resp 16 01/08/23 12:04 BP 165/75 01/08/23 12:04 Pulse Ox 98 01/08/23 12:04 FiO2 Intake & Output 01/08/23 01/08/23 01/09/23 06:59 18:59 06:59 Intake Total 200 Output Total 0 200 Balance 200 -200 Intake: Oral 200 Output: Stool 0 200 Other: # Voids 2 1 # Bowel Movements 0 - Exam PHYSICAL EXAMINATION: Patient is lying in the bed comfortably, no acute distress, awake alert and oriented.. HEENT: Normocephalic. Neck is supple. Pupils reactive. Nostrils clear. Oral cavity is moist. Neck reveals no JVD, carotid bruits, or thyromegaly. CHEST EXAMINATION: Trachea is central. Symmetrical expansion. Lung carpio clear to auscultation and percussion. CARDIAC: Normal S1, S2 with no gallops. No murmurs ABDOMEN: Soft. Bowel sounds present. Nontender. No organomegaly. No abdominal bruits. Left lower quadrant colostomy.. Extremities: reveal no edema. No clubbing or cyanosis Neurologically awake, alert, oriented x1-2 with cognitive impairment.. No gross focal deficits noted Skin: No rash or skin lesions. Psychiatric: Coperative. Nonsuicidal, Musculoskeletal: No joint swelling or deformity. Normal range of motion. - Labs CBC & Chem 7: 01/06/23 20:00 01/08/23 05:41 Labs: Abnormal Lab Results - Last 24 Hours (Table) 01/08/23 Range/Units 05:41 BUN 7.8 L (9.0-27.0) mg/dL BUN/Creatinine Ratio 11.14 L (12.00-20.00) Ratio Assessment and Plan Assessment: Dementia with behavioral changes. Noncompliance with medications Hypothyroidism with elevated TSH and low free T4 level. Dementia GERD Hyperlipidemia History of cancer status post colostomy Depression DVT prophylaxis with heparin subcu. Plan: Patient will be continued on home medication including Depakote and Zoloft. Patient is also on Aricept. Follow-up chest x-ray and UA. Rule out infection. Colostomy care Follow-up TSH, B12 folate levels. Psychiatric evaluation and social work consult for possible placement.
[2023-01-09] MEDS: PANTOPRAZOLE 40 MG TABLET PO SCH (07:41)
[2023-01-09] MEDS: LEVOTHYROXINE 75 MCG TAB PO SCH (07:41)
[2023-01-09] MEDS: CLOPIDOGREL 75 MG TAB PO SCH (07:41)
[2023-01-09] MEDS: HEPARIN SODIUM,PORCINE 5,000 UNIT/ML 1 ML VIAL SQ SCH ×3 (07:41→23:36)
[2023-01-09] MEDS: SERTRALINE 100 MG TAB PO SCH (07:41)
[2023-01-09] MEDS: DIVALPROEX ER 250 MG TAB.ER.24H PO SCH ×2 (07:42→20:40)
[2023-01-09] MEDS: CYANOCOBALAMIN 500 MCG TAB PO SCH (07:42)
[2023-01-09 11:17] LABS: BUN/Creat Ratio 9.25 Ratio (12.00-20.00); Blood Urea Nitrogen 7.4 mg/dL (9.0-27.0); Calcium 9.3 mg/dL (8.7-10.3); Carbon Dioxide 26.2 mmol/L (21.6-31.8); Chloride 105 mmol/L (96-109); Glucose 97 mg/dL (70-110); Potassium 4.1 mmol/L (3.5-5.5); Sodium 141 mmol/L (135-145)
[2023-01-09 13:09] LABS: Appearance,Urine Clear (Clear); Bilirubin,Urine Negative (Negative); Blood,Urine Negative (Negative); Color,Urine Yellow; Glucose,Urine (UA) Negative (Negative); Ketones,Urine Negative (Negative); Leukocyte Esterase,Urine Negative (Negative); Nitrite,Urine Negative (Negative); Protein,Urine Negative (Negative); Specific Gravity,Urine 1.016 (1.001-1.035); Urobilinogen,Urine <2.0 mg/dL (<2.0)
[2023-01-09] MEDS: amLODIPine 10 MG TAB PO SCH (15:19)
[2023-01-09] MEDS: DONEPEZIL 10 MG TAB PO SCH (20:40)
--- NOTE | 2023-01-09 23:04 | PN ---
PROGRESS NOTE DATE OF SERVICE: 01/09/2023 SUBJECTIVE: This 82-year-old gentleman admitted with dementia with behavioral disturbance, is being closely monitored. No chest pain, no palpitations, no fever. OBJECTIVE: VITAL SIGNS: Pulse is 56, blood pressure n, respirations 17. CHEST: Clear to auscultation. CARDIOVASCULAR: S1, S2. ABDOMEN: Soft. NERVOUS SYSTEM: No focal deficits. LABORATORY DATA: Reviewed. ASSESSMENT: 1. Dementia with behavioral changes. 2. Noncompliance with medications. 3. Hypothyroidism. 4. Hypertension. 5. Multiple medical issues. RECOMMENDATIONS: Recommended to continue current management, continue symptomatic treatment, PT/OT evaluation. Add Norvasc to the current regimen. Further recommendations to follow. MMODL / IJN: [id number] / DIOMEDES
[2023-01-10] MEDS: SERTRALINE 100 MG TAB PO SCH (09:05)
[2023-01-10] MEDS: CLOPIDOGREL 75 MG TAB PO SCH (09:05)
[2023-01-10] MEDS: LEVOTHYROXINE 75 MCG TAB PO SCH (09:05)
[2023-01-10] MEDS: amLODIPine 10 MG TAB PO SCH (09:05)
[2023-01-10] MEDS: CYANOCOBALAMIN 500 MCG TAB PO SCH (09:05)
[2023-01-10] MEDS: PANTOPRAZOLE 40 MG TABLET PO SCH (09:05)
[2023-01-10] MEDS: HEPARIN SODIUM,PORCINE 5,000 UNIT/ML 1 ML VIAL SQ SCH ×2 (09:06→16:44)
[2023-01-10] MEDS: DIVALPROEX ER 250 MG TAB.ER.24H PO SCH ×2 (09:07→22:47)
[2023-01-10 11:03] LABS: Basophils # (A) 0.05 X 10*3/uL (0.00-0.10); Basophils % (A) 0.8 %; Eosinophils # (A) 0.06 X 10*3/uL (0.04-0.35); HCT 41.9 % (39.6-50.0); HGB 14.1 d/dL (13.0-17.0); Lymphocytes # (A) 2.78 X 10*3/uL (0.90-5.00); MCH 32.3 pg (27.0-32.0); MCHC 33.7 d/dL (32.0-37.0); MCV 96.1 FL (80.0-97.0); Mean Platelet Volume 11.7 FL (9.5-12.2); Monocytes % (A) 9.7 %; NRBC Per 100 WBC 0 X 10*3/uL (0.00-0.01); Neutrophils # (A) 2.67 X 10*3/uL (1.80-7.70); Neutrophils % (A) 43.2 %; Platelet Count 251 X 10*3/uL (140-440); RBC 4.36 X 10*6/uL (4.40-5.60); RDW 13.1 % (11.5-14.5); WBC 6.18 X 10*3/uL (4.50-10.00)
[2023-01-10 11:19] LABS: BUN/Creat Ratio 13.43 Ratio (12.00-20.00); Blood Urea Nitrogen 9.4 mg/dL (9.0-27.0); Calcium 9.3 mg/dL (8.7-10.3); Carbon Dioxide 29.3 mmol/L (21.6-31.8); Chloride 103 mmol/L (96-109); Glucose 89 mg/dL (70-110); Potassium 3.8 mmol/L (3.5-5.5); Sodium 140 mmol/L (135-145)
--- NOTE | 2023-01-10 13:49 | PN ---
PROGRESS NOTE DATE OF SERVICE: 01/10/2023 SUBJECTIVE: This 82-year-old gentleman who was admitted dementia with behavior which is being closely monitored. No chest pain, no palpitations. No fever on exam. The patient is cooperative today. PHYSICAL EXAMINATION: VITAL SIGNS: Pulse 66, blood pressure 130/57, respirations 18. CHEST: Clear to auscultation. CARDIOVASCULAR: S1, S2. ABDOMEN: Soft. NERVOUS SYSTEM: No focal deficits. LABORATORY DATA: Reviewed. ASSESSMENT: 1. Dementia with behavior changes. 2. Noncompliance with medication. 3. Hypothyroidism. 4. Hypertension. 5. Multiple complex medical issues. RECOMMENDATIONS AND DISCUSSION: I recommended to continue current management and treatment. Continue with the PT, OT, and possible assisted living discharge may be in the next 24 hours. MMODL / IJN: [id number] /
--- NOTE | 2023-01-10 17:39 | CDI ---
Documentation Clarification Form Date: 01/10/2023 05:16:47 PM From: Roxana Moya RN, CCDS Admit Date: 01/06/2023 11:58:00 PM Patient Name: Twan Murphy Visit Number: [id number] Discharge Date: ATTENTION: The Clinical Documentation Specialists (CDI) and [facility] Coding Staff appreciate your assistance in clarifying documentation. Please respond to the clarification below the line at the bottom and electronically sign. The CDI & [facility] Coding staff will review the response and follow-up if needed. Please note: Queries are made part of the Legal Health Record. If you have any questions, please contact the author of this message via ITS. Dr. Vera Villasenor Dementia is documented is documented in the H/P and subsequent progress notes. Additional clarification regarding the type of dementia is requested. Patient history/risk factors: Cancer, CVA/TIA, Dementia, GERD/Reflux, Hyperlipidemia, Thyroid Disorder Clinical indicators: 82-year-old male presents today for evaluation regards to altered mental status not acting appropriately fighting with family. 01/06 Labs: WBC 8.0 HGB 15.5 Na+ 139 BUN 15, Cr 0.67, RBS 112, EKG is sinus rate 75 bpm 01/08 CXR: Chronic changes without evidence for acute pulmonary disease. Treatment: Neurological assessment per protocol Depakote 250 MG PO BID 01/07-01/10 Zoloft 200 MG PO Daily Aricept 10 MG PO HS 01/07-01/09 Norvasc 10 MG PO Daily 01/10 Please clarify the type dementia, if known: [ ] Alzheimers disease (specify if early(presenile) or late(senile) onset) and if mild, moderate or severe, [ ] Parkinsons disease [ ] Senile (specify if with or without confusional state) [ ] Vascular (specify if arteriosclerosis or sequel of cerebrovascular disease) [ ] Lewy body [ ] Other condition or cause of dementia, please specify [ ] Unable to determine Please indicate any behavioral disturbances associated with the condition (such as aggression, combative or wandering) (Template Last Revised: June 2020) Senile with confusional state) MTDD
[2023-01-10] MEDS: DONEPEZIL 10 MG TAB PO SCH (22:47)
[2023-01-11] MEDS: HEPARIN SODIUM,PORCINE 5,000 UNIT/ML 1 ML VIAL SQ SCH ×2 (01:48→09:21)
[2023-01-11 02:23] VITALS: RESP 16
[2023-01-11 08:00] VITALS: BP 148/62; PULSE 63; TEMP 98.5
[2023-01-11] MEDS: PANTOPRAZOLE 40 MG TABLET PO SCH (09:21)
[2023-01-11] MEDS: amLODIPine 10 MG TAB PO SCH (09:22)
[2023-01-11] MEDS: DIVALPROEX ER 250 MG TAB.ER.24H PO SCH (09:22)
[2023-01-11] MEDS: CLOPIDOGREL 75 MG TAB PO SCH (09:22)
[2023-01-11] MEDS: CYANOCOBALAMIN 500 MCG TAB PO SCH (09:22)
[2023-01-11] MEDS: SERTRALINE 100 MG TAB PO SCH (09:22)
[2023-01-11] MEDS ORDERED: LEVOTHYROXINE 75 MCG TAB PO SCH (09:30)
--- NOTE | 2023-01-12 10:29 | P.DS ---
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 Patient will follow-up with Dr. Phan in the outpatient setting upon discharge. Total time taken is greater than 35 minutes. Hospital course This is a 82-year-old male who was recently admitted with behavioral changeswith dementia most likely advancing. Patient being closely monitored and social work was following working on AFC placement. Physical therapy evaluated the patient and would not qualify for correction facility as he does have a shuffling gait although is steady with ambulation and was able to walk independently with just standby assist. [facility] able to accept the patient and will be discharged today. Covid testing was negative. Currently no reports of chest pain, shortness of breath, or palpitations. Patient is afebrile. No reports of nausea or vomiting and patient is tolerating diet. Patient will be going to [facility] today. physical exam: Gen: This is a 82-year-old male who is awake, alert and oriented 2, thin built, elderly male, well-developed HEENT: Head is atraumatic, normocephalic. Pupils equal, round. Sclerae is anicteric. NECK: Supple. No JVD. No lymphadenopathy. No thyromegaly. LUNGS: Clear to auscultation. No wheezes or rhonchi. No intercostal retractions. HEART: Regular rate and rhythm. No murmur. ABDOMEN: Soft. Bowel sounds are present. No masses. No tenderness. EXTREMITIES: No pedal edema. No calf tenderness. NEUROLOGICAL: Patient is awake, alert and oriented x3. Cranial nerves 2 through 12 are grossly intact. Please refer to medication reconciliation sheet for a list of medications. The impression and plan of care has been dictated by Bonnie Diehl, Nurse Practitioner as directed. Dr. Hamilton MD I have performed a history and examination and MDM of this patient, discussed the same with the dictator, and agree with the dictator's assessment and plan as written ,documented as a scribe. Based on total visit time, I have performed more than 50% of the visit. Patient Condition at Discharge: Stable Plan - Discharge Summary Discharge Rx Participant: No New Discharge Prescriptions: New Cyanocobalamin (Vitamin B-12) [Vitamin B-12] 1,000 mcg PO DAILY #30 tablet amLODIPine [Norvasc] 10 mg PO DAILY #30 tablet Continue Memantine [Namenda] 10 mg PO BID #60 tab Omeprazole 20 mg PO DAILY #30 cap Levothyroxine Sodium [Synthroid] 150 mcg PO AC-BRKFST #30 tab Sertraline [Zoloft] 200 mg PO DAILY #60 tab Donepezil [Aricept] 10 mg PO HS #30 tab Divalproex ER [Depakote ER] 250 mg PO BID #60 tab Atorvastatin [Lipitor] 20 mg PO DAILY #30 tab gemfibroziL [Lopid] 600 mg PO AC-BID #60 tab Clopidogrel [Plavix] 75 mg PO DAILY #30 tab Changed QUEtiapine [SEROquel] 12.5 mg PO HS PRN #30 tab PRN Reason: Insomnia Discharge Medication List Atorvastatin [Lipitor] 20 mg PO DAILY #30 tab 01/11/23 [Rx] Clopidogrel [Plavix] 75 mg PO DAILY #30 tab 01/11/23 [Rx] Cyanocobalamin (Vitamin B-12) [Vitamin B-12] 1,000 mcg PO DAILY #30 tablet 01/11/23 [Rx] Divalproex ER [Depakote ER] 250 mg PO BID #60 tab 01/11/23 [Rx] Donepezil [Aricept] 10 mg PO HS #30 tab 01/11/23 [Rx] Levothyroxine Sodium [Synthroid] 150 mcg PO AC-BRKFST #30 tab 01/11/23 [Rx] Memantine [Namenda] 10 mg PO BID #60 tab 01/11/23 [Rx] Omeprazole 20 mg PO DAILY #30 cap 01/11/23 [Rx] QUEtiapine [SEROquel] 12.5 mg PO HS PRN #30 tab 01/11/23 [Rx] Sertraline [Zoloft] 200 mg PO DAILY #60 tab 01/11/23 [Rx] amLODIPine [Norvasc] 10 mg PO DAILY #30 tablet 01/11/23 [Rx] gemfibroziL [Lopid] 600 mg PO AC-BID #60 tab 01/11/23 [Rx] Follow up Appointment(s)/Referral(s): Marcos Phan MD [Primary Care Provider] - 1-2 days Patient Instructions/Handouts: Dementia (GEN) Activity/Diet/Wound Care/Special Instructions: [facility] - [id number] [facility], [place] [address] Riana P: [phone] Discharge Disposition: HOME SELF-CARE
== END 2023-01-11 13:43 | disposition home or self-care (01) | DRG 880 ==
LOC: EC 19:00 → 5NMEDONC 23:58 → EEVIPCON 23:58 → 5NMEDONC 01-07 16:35
PROVIDERS: ADMIT Hospitalist; ATTEND Hospitalist
DX: F05 Delirium due to known physiological condition (principal); E03.9 Hypothyroidism, unspecified; T38.1X6A Underdosing of thyroid hormones and substitutes, initial encounter; Z91.128 Patient's intentional underdosing of medication regimen for other reason; E78.5 Hyperlipidemia, unspecified; I10 Essential (primary) hypertension; K21.9 Gastro-esophageal reflux disease without esophagitis; Z20.822 Contact with and (suspected) exposure to COVID-19; Z79.02 Long term (current) use of antithrombotics/antiplatelets; Z79.890 Hormone replacement therapy; Z79.899 Other long term (current) drug therapy; Z85.038 Personal history of other malignant neoplasm of large intestine; Z86.73 Personal history of transient ischemic attack (TIA), and cerebral infarction without residual deficits; Z93.3 Colostomy status; Z88.0 Allergy status to penicillin
CPT/HCPCS: 36415; 71045; 80048; 80053; 80306; 80320; 81003; 82140; 82607; 82747; 84439; 84443; 84484; 85025; 85610; 85730; 87635; 93005; 96361; 96374; 99285

== ENCOUNTER 2023-03-17 22:53 | Emergency (ER) | payer MEDICARE, BC ==
[2023-03-17 23:18] VITALS: TEMP 97.8
--- NOTE | 2023-03-18 00:14 | ED ---
Head Injury HPI - General Chief complaint: Head Injury Stated complaint: Fall Time Seen by Provider: 03/17/23 23:16 Source: EMS Mode of arrival: EMS Limitations: altered mental status - History of Present Illness Initial comments: this patient is an 82-year-old man brought to have evaluation after having had a head injury. The patient reportedly had a stroke and has dementia and is confused at baseline. The transfer paperwork states the patient appeared to lose balance and struck his head on a table when he was in the process of falling. When I interview the patient, he indicates that he fell onto his left side. He points mainly to the shoulder area. MD Complaint: head injury -: hour(s) Mechanism of Injury: mechanical fall Location: parietal Loss of Consciousness: unsure Place: home - Related Data Previous Rx's Medication Instructions Recorded Atorvastatin [Lipitor] 20 mg PO DAILY #30 tab 01/11/23 Clopidogrel [Plavix] 75 mg PO DAILY #30 tab 01/11/23 Cyanocobalamin (Vitamin B-12) 1,000 mcg PO DAILY #30 tablet 01/11/23 [Vitamin B-12] Divalproex ER [Depakote ER] 250 mg PO BID #60 tab 01/11/23 Donepezil [Aricept] 10 mg PO HS #30 tab 01/11/23 Levothyroxine Sodium [Synthroid] 150 mcg PO AC-BRKFST #30 tab 01/11/23 Memantine [Namenda] 10 mg PO BID #60 tab 01/11/23 Omeprazole 20 mg PO DAILY #30 cap 01/11/23 QUEtiapine [SEROquel] 12.5 mg PO HS PRN #30 tab 01/11/23 Sertraline [Zoloft] 200 mg PO DAILY #60 tab 01/11/23 amLODIPine [Norvasc] 10 mg PO DAILY #30 tablet 01/11/23 gemfibroziL [Lopid] 600 mg PO AC-BID #60 tab 01/11/23 Allergies/Adverse reactions: Allergies Allergy/AdvReac Type Severity Reaction Status Date / Time Penicillins Allergy Unknown Verified 03/17/23 23:06 Review of Systems ROS Statement: Those systems with pertinent positive or pertinent negative responses have been documented in the HPI. ROS Other: All systems not noted in ROS Statement are negative. Limitations: ROS unobtainable due to patients medical condition Past Medical History Past Medical History: Cancer, CVA/TIA, Dementia, GERD/Reflux, Hyperlipidemia, Thyroid Disorder Additional Past Medical History / Comment(s): colon cancer History of Any Multi-Drug Resistant Organisms: None Reported Additional Past Surgical History / Comment(s): colostomy Past Psychological History: No Psychological Hx Reported Smoking Status: Never smoker Past Alcohol Use History: None Reported Past Drug Use History: None Reported General Exam Limitations: no limitations General appearance: alert, in no apparent distress Head exam: Present: normocephalic Eye exam: Present: normal appearance, PERRL, EOMI. Absent: scleral icterus, conjunctival injection, nystagmus Neck exam: Present: normal inspection, full ROM. Absent: tenderness Respiratory exam: Present: normal lung sounds bilaterally. Absent: respiratory distress, wheezes, rales, rhonchi, stridor Cardiovascular Exam: Present: regular rate, normal rhythm, normal heart sounds. Absent: systolic murmur, diastolic murmur, rubs, gallop GI/Abdominal exam: Present: soft. Absent: distended, tenderness, guarding, rebound, rigid, mass Extremities exam: Present: normal inspection, normal capillary refill. Absent: pedal edema, calf tenderness Back exam: Present: normal inspection. Absent: vertebral tenderness Neurological exam: Present: alert, CN II-XII intact. Absent: motor sensory deficit Skin exam: Present: warm, dry, intact, normal color. Absent: rash Course Vital Signs 03/17/23 03/18/23 03/18/23 23:00 00:00 00:30 Temperature 97.8 F Pulse Rate 78 66 64 Respiratory 17 16 16 Rate Blood Pressure 180/67 151/64 157/61 O2 Sat by Pulse 97 97 97 Oximetry 03/18/23 00:54 Temperature Pulse Rate 59 L Respiratory 16 Rate Blood Pressure 126/67 O2 Sat by Pulse 96 Oximetry - Reevaluation(s) Reevaluation #1: 03/18/23 00:06 was able to speak with the patient's stepson who is listed as his power of park interpretive ranger. I discussed the CAT scan finding, and he requested to have patient seen by neurosurgery discussed transfer options and he indicated [facility]. Medical Decision Making - Medical Decision Making patient is an 82-year-old man sent from the halfway home to have evaluation after ground-level fall. The patient is sent for computed tomography scan of the brain and C-spine which I interpreted to show presence of an approximately 3 cm intraparenchymal hemorrhage in the left temporo-occipital. case discussed with Dr. Schultz who will accept Was pt. sent in by a medical professional or institution (, GALILEO, PARTS CONTROL CLERK, urgent care, hospital, or fdc...) When possible be specific @ -Sent from his snf center Did you speak to anyone other than the patient for history (EMS, parent, family, police, friend...)? What history was obtained from this source @ EMS gave history Did you review nursing and triage notes (agree or disagree)? Why? @ -[I reviewed and agree with nursing and triage notes] Were old charts reviewed (outside hosp., previous admission, EMS record, old EKG, old radiological studies, urgent care reports/EKG's, fdc records)? Report findings @ -[No old charts were reviewed] Differential Diagnosis (chest pain, altered mental status, abdominal pain women, abdominal pain men, vaginal bleeding, weakness, fever, dyspnea, syncope, headache, dizziness, GI bleed, back pain, seizure, CVA, palpatations, mental health, musculoskeletal)? @ -[Differential Musculoskeletal Muscular strain, contusion, ligament sprain, fracture, muscle spasm, intracranial hemorrhage, including parenchymal bleed, subdural, subarachnoid. Cervical fracture, cranial fracture.. This is not meant to be in all inclusive list EKG interpreted by me (3pts min.). @ -[As above] X-rays interpreted by me (1pt min.). @ -[None done] CT interpreted by me (1pt min.). @ -[I interpreted as above U/S interpreted by me (1pt. min.). @ -[None done] What testing was considered but not performed or refused? (CT, X-rays, U/S, labs)? Why? @ -[None] What meds were considered but not given or refused? Why? @ -[None] Did you discuss the management of the patient with other professionals (professionals i.e. GALILEO Riddle, PARTS CONTROL CLERK, lab, RT, psych nurse, social services counselor, accounts manager, teacher, commercial escrow officer, registered nurse hh case manager)? Give summary @ -[No] Was smoking cessation discussed for >3mins.? @ -[No] Was critical care preformed (if so, how long)? @ -[S 35 minutes Were there social determinants of health that impacted care today? How? (Homelessness, low income, unemployed, alcoholism, drug addiction, transportation, low edu. Level, literacy, decrease access to med. care, correction, rehab)? @ -[No] Was there de-escalation of care discussed even if they declined (Discuss DNR or withdrawal of care, Hospice)? DNR status @ -[No] What co-morbidities impacted this encounter? (DM, HTN, Smoking, COPD, CAD, Cancer, CVA, ARF, Chemo, Hep., AIDS, mental health diagnosis, sleep apnea, morbid obesity)? @ -[None] Was patient admitted / discharged? Hospital course, mention meds given and route, prescriptions, significant lab abnormalities, going to OR and other pertinent info. @ -[See above notes Undiagnosed new problem with uncertain prognosis? @ -[No] Drug Therapy requiring intensive monitoring for toxicity (Heparin, Nitro, Insulin, Cardizem)? @ -[No] Were any procedures done? @ -[No] Diagnosis/symptom? @ -Acute intracerebral bleed Acute, or Chronic, or Acute on Chronic? @ -[Acute Uncomplicated (without systemic symptoms) or Complicated (systemic symptoms)? @ -[default] Side effects of treatment? @ -[No] Exacerbation, Progression, or Severe Exacerbation? @ -[No] Poses a threat to life or bodily function? How? (Chest pain, [place], [place], pneumonia, PE, COPD, DKA, ARF, appy, cholecystitis, CVA, Diverticulitis, Homicidal, S uicidal, threat to staff... and all critical care pts) @ -[There is threat to life with intracerebral bleed - Lab Data Result diagrams: 03/18/23 00:44 03/18/23 00:44 Lab Results 03/18/23 03/18/23 03/18/23 Range/Units 00:44 00:44 00:44 WBC 7.4 (3.8-10.6) k/uL RBC 4.07 L (4.30-5.90) m/uL Hgb 13.4 (13.0-17.5) gm/dL Hct 39.0 (39.0-53.0) % MCV 95.8 (80.0-100.0) fL MCH 32.8 (25.0-35.0) pg MCHC 34.3 (31.0-37.0) g/dL RDW 12.7 (11.5-15.5) % Plt Count 186 (150-450) k/uL MPV 10.0 Neutrophils % 55 % Lymphocytes % 34 % Monocytes % 8 % Eosinophils % 1 % Basophils % 0 % Neutrophils # 4.1 (1.3-7.7) k/uL Lymphocytes # 2.5 (1.0-4.8) k/uL Monocytes # 0.6 (0-1.0) k/uL Eosinophils # 0.0 (0-0.7) k/uL Basophils # 0.0 (0-0.2) k/uL PT 11.5 (10.0-12.5) sec INR 1.1 (<1.2) APTT 24.9 (22.0-30.0) sec Sodium 140 (137-145) mmol/L Potassium 3.4 L (3.5-5.1) mmol/L Chloride 104 (98-107) mmol/L Carbon Dioxide 28 (22-30) mmol/L Anion Gap 8 mmol/L BUN 11 (9-20) mg/dL Creatinine 0.59 L (0.66-1.25) mg/dL Est GFR (CKD-EPI)AfAm >90 (>60 ml/min/1.73 sqM) Est GFR (CKD-EPI)NonAf >90 (>60 ml/min/1.73 sqM) Glucose 87 (74-99) mg/dL Calcium 8.9 (8.4-10.2) mg/dL Total Bilirubin 0.6 (0.2-1.3) mg/dL AST 25 (17-59) U/L ALT 12 (4-49) U/L Alkaline Phosphatase 79 (38-126) U/L Total Protein 6.1 L (6.3-8.2) g/dL Albumin 3.6 (3.5-5.0) g/dL Disposition Clinical Impression: Intracerebral hemorrhage Disposition: OTHER INSTITUTION NOT DEFINED Condition: Critical Is patient prescribed a controlled substance at d/c from ED?: No Referrals: Marcos Phan MD [Primary Care Provider] - 1-2 days - Out of Hospital Transfer - Req. Specs Out of Hospital Transfer - Requested Specifics: Other Emergency Center
[2023-03-18] MEDS ORDERED: LABETALOL 5 MG/ML VIAL MDV IVP STA (00:17)
[2023-03-18] MEDS ORDERED: niCARdipine 20 MG in SODIUM CHLORIDE 0.9% 192 ML IV SCH (00:30)
--- NOTE | 2023-03-18 00:34 | CT ---
ADDENDUM - Added by Trey Woody MD on 03/18/2023 12:35 AM (-08:00) EXAM: CT Head Without Intravenous Contrast CLINICAL HISTORY: fall injury TECHNIQUE: Axial computed tomography images of the head/brain without intravenous contrast. CTDI is 45.2 mGy and DLP is 1071 mGy-cm. This CT exam was performed using one or more of the following dose reduction techniques: automated exposure control, adjustment of the mA and/or kV according to patient size, and/or use of iterative reconstruction technique. COMPARISON: February 11, 2022 CT. FINDINGS: Brain: There is an acute lower left parietal intraparenchymal hemorrhage measuring 2.9 x 3.0 x 3.3 cm for an estimated volume of 14 cc. There is mild surrounding edema. No extra-axial hemorrhage or collection. Minimal left to right midline shift of 1-2 mm. Ventricles: Unremarkable. No ventriculomegaly. Bones/joints: Unremarkable. No acute fracture. Soft tissues: Sinuses: Unremarkable as visualized. No acute sinusitis. Mastoid air cells: Unremarkable as visualized. No mastoid effusion. IMPRESSION: Acute 14 cc intraparenchymal hemorrhage in the lower left parietal lobe. EXAM: CT Cervical Spine Without Intravenous Contrast CLINICAL HISTORY: fall injury TECHNIQUE: Axial computed tomography images of the cervical spine without intravenous contrast. CTDI is 9.2 mGy and DLP is 280 mGy-cm. This CT exam was performed using one or more of the following dose reduction techniques: automated exposure control, adjustment of the mA and/or kV according to patient size, and/or use of iterative reconstruction technique. COMPARISON: No relevant prior studies available. FINDINGS: Vertebrae: Advanced degenerative arthropathy of the facet joints. Mild retrolisthesis of C5 relative to C4 and C6. No acute fracture. Discs/spinal canal/neural foramina: Multilevel neural foraminal stenosis, most pronounced at C5/C6. Advanced disc degeneration at multiple levels with extensive spur formation. Soft tissues: Unremarkable. IMPRESSION: No acute findings in the cervical spine. <MYCVCSECTION> Communications: 03/18/23 00:39 Call Doctor Regarding Intracranial Hemorrhage, called Dr. Jarquin on 03/18 00:39 (-05:00)
[2023-03-18 01:26] VITALS: BP 126/67; PULSE 59; RESP 16
[2023-03-18 01:26] LABS: Basophils % (A) 0 %; Eosinophils % (A) 1 %; HGB 13.4 gm/dL (13.0-17.5); Lymphocytes # (A) 2.5 k/uL (1.0-4.8); Lymphocytes % (A) 34 %; MCH 32.8 pg (25.0-35.0); MCHC 34.3 g/dL (31.0-37.0); MCV 95.8 fL (80.0-100.0); Monocytes # (A) 0.6 k/uL (0-1.0); Monocytes % (A) 8 %; Neutrophils # (A) 4.1 k/uL (1.3-7.7); Neutrophils % (A) 55 %; Platelet Count 186 k/uL (150-450); RBC 4.07 m/uL (4.30-5.90); RDW 12.7 % (11.5-15.5); WBC 7.4 k/uL (3.8-10.6)
[2023-03-18 01:36] LABS: ALT 12 U/L (4-49); AST 25 U/L (17-59); African American GFR (CKD) >90 (>60 ml/min/1.73 sqM); Albumin 3.6 g/dL (3.5-5.0); Alkaline Phosphatase 79 U/L (38-126); Anion Gap 8 mmol/L; Blood Urea Nitrogen 11 mg/dL (9-20); Calcium 8.9 mg/dL (8.4-10.2); Carbon Dioxide 28 mmol/L (22-30); Chloride 104 mmol/L (98-107); Glucose 87 mg/dL (74-99); Non-African American GFR(CKD) >90 (>60 ml/min/1.73 sqM); Potassium 3.4 mmol/L (3.5-5.1); Sodium 140 mmol/L (137-145); Total Bilirubin 0.6 mg/dL (0.2-1.3); Total Protein 6.1 g/dL (6.3-8.2)
[2023-03-18 01:40] LABS: INR 1.1 (<1.2); Partial Thromboplastin Time 24.9 sec (22.0-30.0); Prothrombin Time 11.5 sec (10.0-12.5)
== END 2023-03-18 00:54 | disposition other institution (70) ==
LOC: EC 22:53
DX: S06.350A Traumatic hemorrhage of left cerebrum without loss of consciousness, initial encounter (principal); Z88.0 Allergy status to penicillin; W18.09XA Striking against other object with subsequent fall, initial encounter
CPT/HCPCS: 99291 ×2; 96365 ×2; 96375 ×2; 36415; 80053; 85025; 85610; 85730; 72125; 70450; J1920

== ENCOUNTER 2023-07-27 17:10 | Emergency (ER) | payer MEDICARE, BC ==
[2023-07-27 17:33] VITALS: RESP 18; TEMP 98.9
--- NOTE | 2023-07-27 18:16 | ED ---
General Adult HPI - General Chief complaint: Fall Stated complaint: Fall, head injury Time Seen by Provider: 07/27/23 17:19 Source: patient, EMS, RN notes reviewed, old records reviewed Mode of arrival: EMS Limitations: altered mental status - History of Present Illness Initial comments: 82-year-old male presents from senior living status post low mechanism fall. Patient had fallen from his chair with right-sided head injury. No loss consciousness. Patient is on aspirin and Plavix according to naturalization examiner report. Patient himself has no complaints, no headache, no neck pain, no other injury reported - Related Data Home Medications Medication Instructions Recorded Confirmed Aspirin [[place] Aspirin EC] 81 mg PO DAILY@0800 07/27/23 07/27/23 Atorvastatin [Lipitor] 20 mg PO DAILY@179907/27/23 07/27/23 Clopidogrel [Plavix] 75 mg PO DAILY@79907/27/23 07/27/23 Cyanocobalamin [Vitamin B-12 1,000 mcg SQ QMONTHLY 07/27/23 07/27/23 Injection] Donepezil [Aricept] 10 mg PO DAILY@179907/27/23 07/27/23 LORazepam [Ativan] 1 mg PO BID PRN 07/27/23 07/27/23 Levothyroxine Sodium [Synthroid] 150 mcg PO DAILY@179907/27/23 07/27/23 Melatonin 6 mg PO HS@199907/27/23 07/27/23 Memantine [Namenda] 10 mg PO BID@0800,179907/27/23 07/27/23 QUEtiapine [SEROquel] 50 mg PO BID@0800,199907/27/23 07/27/23 Seroquel (Unknown Dose) 1 dose PO DIRECTED 07/27/23 07/27/23 Sertraline [Zoloft] 200 mg PO DAILY@0800 07/27/23 07/27/23 Valproic Acid Oral Soln [Depakene 250 mg PO BID@0800,1700 07/27/23 07/27/23 Syrup] gemfibroziL [Lopid] 600 mg PO BID@0800,1800 07/27/23 07/27/23 lisinopriL [Zestril] 2.5 mg PO HS@199907/27/23 07/27/23 traZODone HCL [Desyrel] 100 mg PO DAILY@1700 07/27/23 07/27/23 Allergies Allergy/AdvReac Type Severity Reaction Status Date / Time Penicillins Allergy Unknown Verified 07/27/23 17:56 Review of Systems ROS Statement: Those systems with pertinent positive or pertinent negative responses have been documented in the HPI. ROS Other: All systems not noted in ROS Statement are negative. Past Medical History Past Medical History: Cancer, CVA/TIA, Dementia, GERD/Reflux, Hyperlipidemia, Thyroid Disorder Additional Past Medical History / Comment(s): colon cancer History of Any Multi-Drug Resistant Organisms: None Reported Additional Past Surgical History / Comment(s): colostomy Past Psychological History: No Psychological Hx Reported Smoking Status: Never smoker Past Alcohol Use History: None Reported Past Drug Use History: None Reported General Exam Limitations: no limitations General appearance: alert, in no apparent distress Head exam: Present: other (Right parietal hematoma, no laceration) Eye exam: Present: normal appearance, PERRL ENT exam: Present: normal exam Neck exam: Present: normal inspection. Absent: tenderness Respiratory exam: Present: normal lung sounds bilaterally. Absent: respiratory distress Cardiovascular Exam: Present: regular rate, normal rhythm GI/Abdominal exam: Present: soft. Absent: distended, tenderness, guarding Extremities exam: Present: normal inspection, normal capillary refill Neurological exam: Present: alert. Absent: motor sensory deficit Psychiatric exam: Present: normal affect, normal mood Skin exam: Present: warm, dry, intact. Absent: cyanosis, diaphoretic Course Vital Signs 07/27/23 17:14 Temperature 98.9 F Pulse Rate 61 Respiratory 18 Rate Blood Pressure 153/68 O2 Sat by Pulse 94 L Oximetry Medical Decision Making - Medical Decision Making Was pt. sent in by a medical professional or institution (, PA, PIERCING MILL OPERATOR, urgent care, hospital, or mcc...) When possible be specific @ -No Did you speak to anyone other than the patient for history (EMS, parent, family, police, friend...)? What history was obtained from this source @ -No Did you review nursing and triage notes (agree or disagree)? Why? @ -I reviewed and agree with nursing and triage notes Were old charts reviewed (outside hosp., previous admission, EMS record, old EKG, old radiological studies, urgent care reports/EKG's, mcc records)? Report findings @ -No old charts were reviewed Differential Diagnosis (chest pain, altered mental status, abdominal pain women, abdominal pain men, vaginal bleeding, weakness, fever, dyspnea, syncope, headache, dizziness, GI bleed, back pain, seizure, CVA, palpatations, mental health, musculoskeletal)? @ -[Injury from fall, intracranial hemorrhage, cervical fracture or subluxation EKG interpreted by me (3pts min.). @ -As above X-rays interpreted by me (1pt min.). @ -None done CT interpreted by me (1pt min.). @ -[CT brain showing subarachnoid intracranial hemorrhage, cervical spine negative for fracture or subluxation U/S interpreted by me (1pt. min.). @ -None done What testing was considered but not performed or refused? (CT, X-rays, U/S, labs)? Why? @ -None What meds were considered but not given or refused? Why? @ -None Did you discuss the management of the patient with other professionals (professionals i.e. , PA, PIERCING MILL OPERATOR, lab, RT, psych nurse, social worker assistant, youth care worker, teacher, principal gifts officer, senior case manager)? Give summary @ -No Was smoking cessation discussed for >3mins.? @ -No Was critical care preformed (if so, how long)? @ -No Were there social determinants of health that impacted care today? How? (Homelessness, low income, unemployed, alcoholism, drug addiction, transportation, low edu. Level, literacy, decrease access to med. care, prison, rehab)? @ -No Was there de-escalation of care discussed even if they declined (Discuss DNR or withdrawal of care, Hospice)? DNR status @ -No What co-morbidities impacted this encounter? (DM, HTN, Smoking, COPD, CAD, Cancer, CVA, ARF, Chemo, Hep., AIDS, mental health diagnosis, sleep apnea, morbid obesity)? @ -None Was patient admitted / discharged? Hospital course, mention meds given and route, prescriptions, significant lab abnormalities, going to OR and other pertinent info. @ -82-year-old male with fall, head injury, patient has intracranial hemorrhage, likely subarachnoid hemorrhage on CT imaging. Patient is at his baseline mental status. I did discuss at length the goals of care with his son-in-law who is a power of head waiter/waitress Mr. Del Rosario, decision is made at no further action will be taken at this time regarding heroic measures or surgical evaluation. The patient will be discharged back to the assisted living facility where he resides. Instructed to hold aspirin and Plavix for 7 days. Patient's power of head waiter/waitress Mr. Del Rosario does indicate that there was discussion of hospice care. Undiagnosed new problem with uncertain prognosis? @ -No Drug Therapy requiring intensive monitoring for toxicity (Heparin, Nitro, Insulin, Cardizem)? @ -No Were any procedures done? @ -No Diagnosis/symptom? @Fall, traumatic subarachnoid Acute, or Chronic, or Acute on Chronic? @ -[Acute Uncomplicated (without systemic symptoms) or Complicated (systemic symptoms)? @ -Default Side effects of treatment? @ -No Exacerbation, Progression, or Severe Exacerbation? @ -No Poses a threat to life or bodily function? How? (Chest pain, [place], [place], pneumonia, PE, COPD, DKA, ARF, appy, cholecystitis, CVA, Diverticulitis, Homicidal, Suicidal, threat to staff... and all critical care pts) @Intracranial hemorrhage, guarded prognosis Disposition Clinical Impression: Fall, Traumatic subarachnoid hemorrhage, Dementia Disposition: HOME SELF-CARE Condition: Fair Instructions (If sedation given, give patient instructions): Fall Prevention for Older Adults (ED), Subarachnoid Hemorrhage (DC) Additional Instructions: Please hold aspirin and Plavix for at least 1 week awaiting PCP evaluation Is patient prescribed a controlled substance at d/c from ED?: No Referrals: Booker Best MD [Primary Care Provider] - 1-2 days Time of Disposition: 18:30
--- NOTE | 2023-07-27 18:31 | CT ---
EXAMINATION TYPE: CT brain cspine wo con DATE OF EXAM: 07/27/2023 HISTORY: Fall, no LOC, on thinners. CT DLP: 1288.8 mGycm. Automated Exposure Control for Dose Reduction was Utilized. TECHNIQUE: CT scan of the head and cervical spine are performed without contrast. COMPARISON: CT 03/17/2023 FINDINGS: There is no skull fracture. There is a 15 x 5 x 5 mm right subarachnoid hyperdensity consistent with small subarachnoid hemorrhage at the lateral margin of the right mid temporal lobe. No other intracra nial hemorrhage. No mass or mass effect. Bilateral leblanc radiata and centrum semiovale symmetric ill-defined low-atte nuation is nonspecific but usually reflect small vessel ischemic change. This is stable when compared with 03/17/2023 CT. There is no definite new low attenuation defect. The orbits are intact. Paranasal sinuses, middle ear cavities, and and mastoid sinus air are clear. Cervical spine examination is negative for acute fracture or malalignment. Moderate and moderately ma rked cervical spondylosis changes are seen at all cervical spine levels. No acute incidental findings . Discussed the results with the referring physician at 6:21 PM 07/27/2023. IMPRESSION: 15 x 5 x 5 mm subarachnoid hemorrhage at the lateral margin of the right mid temporal lobe.
[2023-07-27 18:44] VITALS: BP 138/66; PULSE 58
== END 2023-07-27 19:35 | disposition home or self-care (01) ==
LOC: EC 17:10
DX: S06.6XAA Traumatic subarachnoid hemorrhage with loss of consciousness status unknown, initial encounter (principal); F03.90 Unspecified dementia, unspecified severity, without behavioral disturbance, psychotic disturbance, mood disturbance, and anxiety; K21.9 Gastro-esophageal reflux disease without esophagitis; Z88.0 Allergy status to penicillin; Z86.73 Personal history of transient ischemic attack (TIA), and cerebral infarction without residual deficits; Z79.899 Other long term (current) drug therapy; W07.XXXA Fall from chair, initial encounter
CPT/HCPCS: 70450; 72125; 99284